=== PATIENT | female | born 2000 | race Asian ===

== ENCOUNTER 2021-04-23 20:12 | Emergency (ER) | payer OTHER ==
[~2021-04-23] VITALS: Ht 147.3 cm; Wt 59.9 kg
--- NOTE | 2021-04-23 20:44 | NUR ---
ERMD at bedside for MSE.
--- NOTE | 2021-04-23 20:47 | NUR ---
Patient discharged to home in stable condition. Written and verbal after care instructions given. Patient verbalizes understanding of instructions. Stressed follow up or return to ER for worsening s/s. Patient ambulated with steady gait.
[2021-04-23] MEDS ORDERED: HYDR10SY12 PO (20:50)
[2021-04-23 21:01] VITALS: BP 121/73
== END 2021-04-23 21:01 | disposition home or self-care (01) ==
LOC: ER 20:20
DX: T78.40XA Allergy, unspecified, initial encounter (principal); R21 Rash and other nonspecific skin eruption; X58.XXXA Exposure to other specified factors, initial encounter; Z91.012 Allergy to eggs
CPT/HCPCS: A4663